=== PATIENT | male | born 1960 | race Caucasian/White ===

== ENCOUNTER 2016-05-30 14:10 | Inpatient (IN) | payer OTHER ==
--- NOTE | 2016-05-30 14:59 | ED ---
GI Bleed HPI - General Chief complaint: GI Bleed Stated complaint: rectal bleeding Time Seen by Provider: 05/30/16 14:10 Source: patient, EMS, RN notes reviewed Mode of arrival: EMS Limitations: no limitations - History of Present Illness Initial comments: This is a 56-year-old male with a history of schizophrenia depression and anxiety who is brought in for evaluation rectal bleeding. He had some back heart stool with blood in it he also complains of pain to his right index finger with some swelling. He states he did cut it open himself. He still complains of pain and redness. He does also say took a spoon to try to get the stool out of his rectum. He denies any abdominal pain at this time. - Related Data Home Medications Medication Instructions Recorded Confirmed Atenolol/Chlorthalidone 1 tab PO DAILY 12/23/15 05/30/16 [Atenolol-Chlorthalidone 100-25] Potassium Chloride 10 meq PO DAILY 12/23/15 05/30/16 Acetaminophen Tab [Tylenol Tab] 500 mg PO TID 05/30/16 05/30/16 Aspirin 325 mg PO DAILY 05/30/16 05/30/16 Cyclobenzaprine [Flexeril] 10 mg PO BID PRN 05/30/16 05/30/16 Diazepam [Valium] 5 mg PO BID PRN 05/30/16 05/30/16 Naproxen [Naproxen] 500 mg PO BID 05/30/16 05/30/16 Paliperidone IM [Invega Sustenna] 234 mg IM Q28D 05/30/16 05/30/16 Paliperidone [Invega] 6 mg PO DAILY 05/30/16 05/30/16 Trihexyphenidyl HCl [Artane] 5 mg PO TID 05/30/16 05/30/16 Previous Rx's Medication Instructions Recorded Docusate [Colace] 100 mg PO DAILY cap 12/29/15 Furosemide [Lasix] 40 mg PO DAILY #30 tab 12/29/15 Isosorbide Mononitrate ER [Imdur] 30 mg PO DAILY #30 tab.er.24h 12/29/15 Allergies Allergy/AdvReac Type Severity Reaction Status Date / Time penicillin V Allergy Severe Rash/Hives Verified 05/30/16 14:52 Review of Systems ROS Statement: Those systems with pertinent positive or pertinent negative responses have been documented in the HPI. ROS Other: All systems not noted in ROS Statement are negative. Past Medical History Past Medical History: COPD, Diabetes Mellitus, Osteoarthritis (OA), Seizure Disorder Additional Past Medical History / Comment(s): tardive dyskinesia, alcoholism in the past. History of Any Multi-Drug Resistant Organisms: None Reported Past Surgical History: No Surgical Hx Reported Past Psychological History: Depression, Schizophrenia Smoking Status: Current every day smoker Past Alcohol Use History: None Reported Past Drug Use History: None Reported General Exam - General Exam Comments Initial Comments: This is a well-developed well-nourished awake alert male Limitations: no limitations General appearance: alert, in no apparent distress, anxious Head exam: Present: atraumatic, normocephalic, normal inspection Eye exam: Present: normal appearance, PERRL, EOMI. Absent: scleral icterus, conjunctival injection, periorbital swelling ENT exam: Present: normal exam, mucous membranes moist Neck exam: Present: normal inspection. Absent: tenderness, meningismus, lymphadenopathy Respiratory exam: Present: normal lung sounds bilaterally. Absent: respiratory distress, wheezes, rales, rhonchi, stridor Cardiovascular Exam: Present: regular rate, normal rhythm, normal heart sounds. Absent: systolic murmur, diastolic murmur, rubs, gallop, clicks GI/Abdominal exam: Present: soft, distended (Increased tympany no masses guarding rebound), normal bowel sounds. Absent: tenderness, guarding, rebound, rigid Rectal exam: Present: other (I did examine the patient's rectum no evidence of acute trauma there are some small hemorrhoids are nontender to palpation rectal exam does reveal some dark stool and some dark blood. Nontender to palpation) Extremities exam: Present: full ROM, normal capillary refill, other (Is an the right upper extremity demonstrates a paronychia to the right index finger to the dorsal lateral aspect. Is also evidence of some pus exuding from the nailbed. No evidence of any foreign body no definite deformity.). Absent: tenderness, pedal edema, joint swelling, calf tenderness Back exam: Present: normal inspection Neurological exam: Present: alert, oriented X3, CN II-XII intact Psychiatric exam: Present: normal affect, normal mood Skin exam: Present: warm, dry, intact, normal color. Absent: rash Course Vital Signs 05/30/16 05/30/16 14:11 15:48 Temperature 97.6 F 98.4 F Pulse Rate 62 63 Respiratory 20 20 Rate Blood Pressure 112/55 97/56 O2 Sat by Pulse 95 95 Oximetry - Reevaluation(s) Reevaluation #1: 05/30/16 17:12 Patient did have. EKG didn't require I&D draining also nailbed required removal this was accomplished by my physician psychologist research assistant. Patient be placed on IV antibiotics Medical Decision Making - Medical Decision Making I did discuss findings with the patient will be admitted for evaluation by GI also be placed on IV antibiotics for the infected right index finger. Patient does demonstrate anemia which was not previously documented. - Lab Data Result diagrams: 05/30/16 15:00 05/30/16 15:00 Lab Results 05/30/16 05/30/16 05/30/16 Range/Units 15:00 15:00 15:00 WBC 10.6 (3.8-10.6) k/uL RBC 3.35 L (4.30-5.90) m/uL Hgb 10.7 L (13.0-17.5) gm/dL Hct 31.7 L (39.0-53.0) % MCV 94.7 (80.0-100.0) fL MCH 31.9 (25.0-35.0) pg MCHC 33.7 (31.0-37.0) g/dL RDW 15.0 (11.5-15.5) % Plt Count 211 (150-450) k/uL Neutrophils % (Manual) 73.0 % Lymphocytes % (Manual) 17.0 % Monocytes % (Manual) 4.0 % Eosinophils % (Manual) 6.0 % Neutrophils # (Manual) 7.7 (1.3-7.7) k/uL Lymphocytes # (Manual) 1.8 (1.0-4.8) k/uL Monocytes # (Manual) 0.4 (0-1.0) k/uL Eosinophils # (Manual) 0.6 (0-0.7) k/uL Nucleated RBCs 0 (0-0) /100 WBC Manual Slide Review Performed RBC Morphology Normal APTT (22.0-30.0) sec Sodium 129 L (137-145) mmol/L Potassium 3.7 (3.5-5.1) mmol/L Chloride 91 L (98-107) mmol/L Carbon Dioxide 28 (22-30) mmol/L Anion Gap 10 mmol/L BUN 19 (9-20) mg/dL Creatinine 0.74 (0.66-1.25) mg/dL Est GFR (MDRD) Af Amer >60 (>60 ml/min/1.73 sqM) Est GFR (MDRD) Non-Af >60 (>60 ml/min/1.73 sqM) Glucose 116 H (74-99) mg/dL Calcium 8.4 (8.4-10.2) mg/dL Magnesium 1.8 (1.6-2.3) mg/dL Total Bilirubin 0.6 (0.2-1.3) mg/dL AST 40 (17-59) U/L ALT 32 (21-72) U/L Alkaline Phosphatase 103 (38-126) U/L Total Creatine Kinase 572 H (55-170) U/L CK-MB (CK-2) 6.6 H* (0.0-2.4) ng/mL CK-MB (CK-2) Rel Index 1.2 Troponin I 0.022 (0.000-0.034) ng/mL Total Protein 6.1 L (6.3-8.2) g/dL Albumin 3.5 (3.5-5.0) g/dL Stool Occult Blood (Negative) Blood Type Blood Type Recheck Antibody Screen Spec Expiration Date 05/30/16 05/30/16 05/30/16 Range/Units 15:00 15:00 16:33 WBC (3.8-10.6) k/uL RBC (4.30-5.90) m/uL Hgb (13.0-17.5) gm/dL Hct (39.0-53.0) % MCV (80.0-100.0) fL MCH (25.0-35.0) pg MCHC (31.0-37.0) g/dL RDW (11.5-15.5) % Plt Count (150-450) k/uL Neutrophils % (Manual) % Lymphocytes % (Manual) % Monocytes % (Manual) % Eosinophils % (Manual) % Neutrophils # (Manual) (1.3-7.7) k/uL Lymphocytes # (Manual) (1.0-4.8) k/uL Monocytes # (Manual) (0-1.0) k/uL Eosinophils # (Manual) (0-0.7) k/uL Nucleated RBCs (0-0) /100 WBC Manual Slide Review RBC Morphology APTT 22.3 (22.0-30.0) sec Sodium (137-145) mmol/L Potassium (3.5-5.1) mmol/L Chloride (98-107) mmol/L Carbon Dioxide (22-30) mmol/L Anion Gap mmol/L BUN (9-20) mg/dL Creatinine (0.66-1.25) mg/dL Est GFR (MDRD) Af Amer (>60 ml/min/1.73 sqM) Est GFR (MDRD) Non-Af (>60 ml/min/1.73 sqM) Glucose (74-99) mg/dL Calcium (8.4-10.2) mg/dL Magnesium (1.6-2.3) mg/dL Total Bilirubin (0.2-1.3) mg/dL AST (17-59) U/L ALT (21-72) U/L Alkaline Phosphatase (38-126) U/L Total Creatine Kinase (55-170) U/L CK-MB (CK-2) (0.0-2.4) ng/mL CK-MB (CK-2) Rel Index Troponin I (0.000-0.034) ng/mL Total Protein (6.3-8.2) g/dL Albumin (3.5-5.0) g/dL Stool Occult Blood Positive (Negative) Blood Type O Positive Blood Type Recheck No Antibody Screen NEGATIVE Spec Expiration Date 06/02/20162299 - Radiology Data Radiology results: report reviewed (I did review the imaging no acute findings) , image reviewed Disposition Clinical Impression: GI bleed, Paronychia of finger of right hand, Anemia, Schizophrenia Disposition: ADMITTED IP TO THIS [facility] Condition: Stable
[2016-05-30 15:07] LABS: Aty Lym Flag Moderate; CH 31.7; CHCM 33.7; HCT 31.7 % (39.0-53.0); HDW 3.27; HGB 10.7 gm/dL (13.0-17.5); MCH 31.9 pg (25.0-35.0); MCHC 33.7 g/dL (31.0-37.0); MCV 94.7 fL (80.0-100.0); Mean Platelet Volume 7.2; RBC 3.35 m/uL (4.30-5.90); WBC 10.6 k/uL (3.8-10.6); WBC (Perox) 10.76
[2016-05-30 15:16] LABS: ALT 32 U/L (21-72); AST 40 U/L (17-59); Alkaline Phosphatase 103 U/L (38-126); Anion Gap 10 mmol/L; Blood Urea Nitrogen 19 mg/dL (9-20); Calcium 8.4 mg/dL (8.4-10.2); Carbon Dioxide 28 mmol/L (22-30); Chloride 91 mmol/L (98-107); Glucose 116 mg/dL (74-99); Magnesium 1.8 mg/dL (1.6-2.3); Non-African American GFR(MDRD) >60 (>60 ml/min/1.73 sqM); Potassium 3.7 mmol/L (3.5-5.1); Sodium 129 mmol/L (137-145); Total Bilirubin 0.6 mg/dL (0.2-1.3); Total Protein 6.1 g/dL (6.3-8.2)
[2016-05-30 15:42] LABS: Troponin I 0.022 ng/mL (0.000-0.034)
[2016-05-30 15:45] LABS: Creatine Kinase MB 6.6 ng/mL (0.0-2.4)
--- NOTE | 2016-05-30 15:48 | XR ---
EXAMINATION TYPE: XR hand complete RT DATE OF EXAM: 05/30/2016 3:07 PM CLINICAL HISTORY: pain TECHNIQUE: Frontal, lateral and oblique images of the right hand are obtained. COMPARISON: None. FINDINGS: There is no acute fracture/dislocation evident.Soft tissue swelling about the right second digit may be postinfectious in nature. No evidence for osteomyelitis. Mild joint space narrowing inv olving various PIP and DIP joints. IMPRESSION: There is no acute fracture or dislocation ICD 10 NO FRACTURE, INITIAL EVALUATION
[2016-05-30] MEDS ORDERED: SODIUM CHLORIDE 0.9% 1,000 ML IV STA (16:37)
[2016-05-30 16:42] LABS: Add Differential Manual Differential
[2016-05-30 16:45] LABS: Manual Review Performed; Nucleated Red Blood Cells 0 /100 WBC (0-0); RBC Morphology Normal; Total Cells Counted 100
[2016-05-30] MEDS ORDERED: NALOXONE 0.4 MG/ML 1 ML VIAL IV PRN (17:14)
[2016-05-30] MEDS ORDERED: CLINDAMYCIN 600 MG in DEXTROSE 5% IN WATER 50 ML IVPB STA ×2 (17:23)
[2016-05-30] MEDS ORDERED: SODIUM CHLORIDE 0.9% 1,000 ML IV ONE (17:53)
--- NOTE | 2016-05-30 18:39 | XR ---
EXAMINATION TYPE: XR chest 2V DATE OF EXAM: 05/30/2016 6:20 PM COMPARISON: NONE HISTORY: Cough per order. TECHNIQUE: Frontal and lateral views of the chest are obtained. FINDINGS: The osseous structures are intact. There is underlying mild cardiomegaly. Background of chr onic emphysematous change is suspected. On frontal view there is increased opacity in the right lung base less well-seen on lateral view. Lateral view is suboptimal due to patient's large body habitus. Some pleural thickening laterally in right lung is suspected. No pleural effusion or pneumothorax is evident bilaterally. IMPRESSION: Cardiomegaly and probably underlying chronic emphysematous change with possible right me dial basilar middle lobe infiltrate. Clinical correlation advised.
--- NOTE | 2016-05-30 18:40 | XR ---
EXAMINATION TYPE: XR abdomen 1V DATE OF EXAM: 05/30/2016 6:20 PM CLINICAL HISTORY: Abdominal pain. TECHNIQUE: 2 upright KUB images of the abdomen are obtained. COMPARISON: None. FINDINGS: Exam is suboptimal due to portable technique and patient's large body habitus. Gas is seen in nondistended stomach. Scattered gas is seen in non-distended small bowel loops. Gas and fecal ma terial is seen in non-distended colon. There is 13 mm horizontal calculus lower pole level left kidne y. No pneumoperitoneum is evident. Visualized osseous structures are intact. IMPRESSION: Overall nonobstructive bowel gas pattern. Probable lower pole 1.3 cm calculus left kidney.
[2016-05-30] MEDS: SODIUM CHLORIDE 0.9% 1,000 ML IV SCH (19:10)
[2016-05-30 21:22] LABS: CH 31.5; CHCM 33.5; HCT 28.4 % (39.0-53.0); HDW 3.32; HGB 9.4 gm/dL (13.0-17.5); MCH 31.5 pg (25.0-35.0); MCHC 33.2 g/dL (31.0-37.0); MCV 94.8 fL (80.0-100.0); Mean Platelet Volume 8.4; RBC 2.99 m/uL (4.30-5.90); RDW 14.8 % (11.5-15.5); WBC 8.5 k/uL (3.8-10.6)
[2016-05-30] MEDS ORDERED: CYCLOBENZAPRINE 10 MG TAB PO PRN (22:05)
[2016-05-30] MEDS: PANTOPRAZOLE 40 MG/10 ML VIAL IVP SCH (22:21)
[2016-05-31] MEDS: ALPRAZolam 0.5 MG TAB PO PRN ×3 (00:04→17:29)
[2016-05-31] MEDS: CLINDAMYCIN 600 MG in DEXTROSE 5% IN WATER 50 ML IVPB SCH ×8 (00:04→18:05)
[2016-05-31] MEDS: NAPROXEN 250 MG TAB PO SCH ×2 (00:04→09:17)
[2016-05-31] MEDS: SODIUM CHLORIDE 0.9% 1,000 ML IV SCH ×3 (04:04→17:29)
[2016-05-31] MEDS: DOCUSATE 100 MG CAP PO SCH (08:57)
[2016-05-31] MEDS: FUROSEMIDE 40 MG TAB PO SCH (08:57)
[2016-05-31] MEDS: ISOSORBIDE MONONITRATE ER 30 MG TAB.ER.24H PO SCH (08:57)
[2016-05-31] MEDS: POTASSIUM CHLORIDE ER 10 MEQ TAB.ER.PRT PO SCH (08:57)
[2016-05-31] MEDS: PANTOPRAZOLE 40 MG/10 ML VIAL IVP SCH ×2 (08:57→20:58)
[2016-05-31] MEDS: ATENOLOL 50 MG TAB PO SCH (08:58)
[2016-05-31] MEDS: CHLORTHALIDONE 25 MG TAB PO SCH (08:58)
[2016-05-31] MEDS ORDERED: ASPIRIN 325 MG TAB PO SCH (09:00)
[2016-05-31] MEDS ORDERED: PALIPERIDONE 6 MG TAB.ER.24 PO SCH (09:00)
[2016-05-31] MEDS ORDERED: TRIHEXYPHENIDYL 2 MG TAB PO SCH (09:00)
[2016-05-31 09:29] LABS: Aty Lym Flag Moderate; CH 31.5; CHCM 33.3; HCT 29.5 % (39.0-53.0); HDW 3.41; MCH 32.2 pg (25.0-35.0); MCHC 33.8 g/dL (31.0-37.0); MCV 95.3 fL (80.0-100.0); Mean Platelet Volume 8.2; Poikilocytosis Slight; RBC 3.09 m/uL (4.30-5.90); RDW 14.8 % (11.5-15.5); WBC (Perox) 8.23
--- NOTE | 2016-05-31 10:05 | P.CONS ---
History of Present Illness - Reason for Consult Consult date: 05/31/16 rectal bleeding Requesting physician: Crescencio Silverio - History of Present Illness 56-year-old gentleman with a history of schizophrenia with auditory hallucinations, depression, anxiety, hypertension, below average intellect, and obesity. Patient presents to the ER with index finger pain and rectal bleeding. Patient was using a spon to disimpact himself. Reports occasional constipation. Denies hematemesis melena fever chills or weight loss. No changes in appetite. No history of colonoscopy or EGD. Denies alcohol. No aspirin or excessive usage of NSAIDs but takes naproxen 500 mg twice daily as well as full strength aspirin. 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 No reports of recurrent rectal bleeding melena hematemesis. He underwent incision and drainage of index finger in the ER. Admission hemoglobin 10.7. MCV 94. Platelet 211. BUN 19. Creatinine 0.7. Hemoccult stool positive. Abdominal x-rays overall nonobstructive bowel gas pattern. Review of medical records hemoglobin in 2013 between 17.9-18.5. Review of Systems Constitutional: Denies fever, chills, sweats, weight gain, or loss. HEENT: Negative for migraines, blurred vision or loss, earaches, drainage, tinnitus, oral mucosal lesions, dysphagia, or odynophagia. Cardiac: Hypertension. Negative for chest pain, arrhythmias, or palpitation. Respiratory: Negative for shortness of breath, hemoptysis, cough, or sputum production. Gastrointestinal: See HPI for pertinent findings. Genitourinary: Negative for hematuria, urgency, frequency, polyuria, dysuria, or penile discharge. Musculoskeletal: Negative for muscle aches, swelling, arthritis, and arthralgias. Neurologic: Negative for stroke or TIA. Endocrine: Negative for thyroid problems. Skin: Negative for rash or itching. Psychiatric: Schizophrenia. Anxiety. Depression. All systems: negative (See HPI) Past Medical History Past Medical History: COPD, Osteoarthritis (OA), Seizure Disorder Additional Past Medical History / Comment(s): tardive dyskinesia, alcoholism in the past. History of Any Multi-Drug Resistant Organisms: None Reported Past Surgical History: No Surgical Hx Reported Past Psychological History: Anxiety, Depression, Schizophrenia Smoking Status: Current every day smoker Past Alcohol Use History: None Reported Past Drug Use History: None Reported - Past Family History Father Family Medical History: Cancer Additional Family Medical History / Comment(s): liver Mother Family Medical History: Dementia Medications and Allergies Home Medications Medication Instructions Recorded Confirmed Type Atenolol/Chlorthalidone 1 tab PO DAILY 12/23/15 05/30/16 History [Atenolol-Chlorthalidone 100-25] Potassium Chloride 10 meq PO DAILY 12/23/15 05/30/16 History ALPRAZolam [Xanax] 0.5 mg PO TID PRN 05/30/16 05/30/16 History Acetaminophen Tab [Tylenol Tab] 500 mg PO TID PRN 05/30/16 05/30/16 History Aspirin 325 mg PO DAILY 05/30/16 05/30/16 History Cyclobenzaprine [Flexeril] 10 mg PO BID PRN 05/30/16 05/30/16 History Naproxen [Naproxen] 500 mg PO BID 05/30/16 05/30/16 History Paliperidone IM [Invega Sustenna] 234 mg IM Q28D 05/30/16 05/30/16 History Paliperidone [Invega] 6 mg PO DAILY 05/30/16 05/30/16 History Trihexyphenidyl HCl [Artane] 5 mg PO TID 05/30/16 05/30/16 History Allergies Allergy/AdvReac Type Severity Reaction Status Date / Time penicillin V Allergy Severe Rash/Hives Verified 05/30/16 14:52 Physical Exam Vitals: Vital Signs Temp Pulse Pulse Resp BP BP Pulse Ox 05/31/16 07:00 98.4 F 69 16 113/67 94 L 05/30/16 23:00 97.8 F 64 16 108/49 92 L 05/30/16 20:44 97.1 F L 67 16 106/68 92 L 05/30/16 19:53 97.9 F 63 18 111/55 96 05/30/16 19:35 64 18 96/53 96 05/30/16 19:06 98.2 F 66 18 117/55 94 L 05/30/16 18:21 97.8 F 62 20 97/37 96 05/30/16 17:51 64 20 110/51 94 L 05/30/16 17:40 98.5 F 63 20 92/58 94 L Intake and Output 05/30/16 05/31/16 05/31/16 22:59 06:59 14:59 Output Total 2550 650 Balance -2550 -650 Output: Urine 2550 650 Other: # Voids 2 1 Weight 181 kg General appearance: The patient is alert, oriented, in no acute distress. Disheveled appearance. HET: Head is normocephalic and atraumatic. Pupils are equal and reactive. Oropharynx is clear without lesions. Neck: Supple without lymphadenopathy. Trachea midline. Heart: S1 S2. Regular rate and rhythm. Lungs: No crackles or wheezes are heard. Abdomen: Soft, nontender, nondistended with bowel sounds. No peritoneal signs. No palpable organomegaly or masses. Extremities: Index finger with dressing clean dry intact without bleeding. Normal skin color and turgor. No cyanosis, rash, ulceration, clubbing, or edema. Radial and pedal pulses are 2/4 bilaterally. Neurological: No focal deficits. Strength and sensation are grossly intact. Rectal: Deferred. Results CBC & Chem 7: 05/31/16 08:49 05/30/16 15:00 Labs: Abnormal Lab Results - Last 24 Hours (Table) 05/30/16 05/31/16 Range/Units 21:00 08:49 RBC 2.99 L 3.09 L (4.30-5.90) m/uL Hgb 9.4 L 10.0 L (13.0-17.5) gm/dL Hct 28.4 L 29.5 L (39.0-53.0) % Abdominal x-ray: report reviewed (Reviewed by Dr. Ken) Assessment and Plan (1) Rectal bleeding Narrative/Plan: 56-year-old male with a history of schizophrenia presents with rectal bleeding using a foreign object to disimpact himself. Hemoccult stool positive. Etiology of bleeding could be local trauma from spoon however other pathology contributing to his present anemia such as NSAID aspirin-induced peptic ulcer disease cannot be entirely excluded as patient's hemoglobin has decreased significantly over the last 3 years. Status: Acute (2) Morbid obesity with BMI of 50.0-59.9, adult Status: Chronic (3) Schizophrenia Status: Chronic (4) Anemia Status: Acute Plan: 1. Patient is declining endoscopic exams at this time. Would advise psychiatric consultation. Appears patient is not able to use reasonable judgment at this time in regards to workup of his anemia. Would advise follow- up in the GI office after discharge once his psychiatric status is assessed. Recommend EGD colonoscopy for workup of anemia once patient consents. We'll be available for additional questions or concerns. Will allow regular diet. Protonix 40 mg daily. Monitor CBC. Thank you for this kind referral and the opportunity to participate in the care of your patient. This consultation was discussed with Dr. Ken. The impression and plan of care have been directed as dictated.
[2016-05-31 10:37] LABS: Add Differential Manual Differential
[2016-05-31 10:39] LABS: Nucleated Red Blood Cells 1 /100 WBC (0-0); Total Cells Counted 200
[2016-05-31 10:40] LABS: WBC 7.6 k/uL (3.8-10.6)
[2016-05-31 10:41] LABS: Polychromasia Present
[2016-05-31 13:38] LABS: % Iron Saturation 7.1 % (20-50)
[2016-05-31 14:53] LABS: CH 31.6; CHCM 33.6; HCT 28.2 % (39.0-53.0); HDW 3.48; HGB 9.2 gm/dL (13.0-17.5); MCH 30.8 pg (25.0-35.0); MCHC 32.5 g/dL (31.0-37.0); MCV 94.7 fL (80.0-100.0); Mean Platelet Volume 7.7; Poikilocytosis Slight; RBC 2.98 m/uL (4.30-5.90); WBC 7.6 k/uL (3.8-10.6)
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
[2016-05-31] MEDS: TRIHEXYPHENIDYL 2 MG TAB PO SCH (17:30)
[2016-05-31] MEDS ORDERED: ONDANSETRON 4 MG/2 ML VIAL IVP PRN (17:31)
[2016-05-31] MEDS ORDERED: PEG 3350-NA SULF,BICARB,CL/KCL 4,000 ML BOTTLE PO ONE (18:01)
[2016-05-31] MEDS: ACETAMINOPHEN TAB 500 MG TAB PO PRN (20:25)
[2016-05-31 21:05] LABS: CH 31.4; CHCM 33.2; HCT 27.9 % (39.0-53.0); HGB 9.4 gm/dL (13.0-17.5); Hypochromasia Slight; MCH 32.3 pg (25.0-35.0); MCHC 33.8 g/dL (31.0-37.0); MCV 95.5 fL (80.0-100.0); Mean Platelet Volume 7.4; Poikilocytosis Slight; RBC 2.92 m/uL (4.30-5.90); RDW 14.7 % (11.5-15.5); WBC 6.7 k/uL (3.8-10.6)
[2016-06-01] MEDS: CLINDAMYCIN 600 MG in DEXTROSE 5% IN WATER 50 ML IVPB SCH ×8 (00:23→21:05)
[2016-06-01] MEDS: SODIUM CHLORIDE 0.9% 1,000 ML IV SCH ×3 (02:49→16:49)
[2016-06-01 03:48] LABS: CH 31.2; HCT 28.5 % (39.0-53.0); HDW 3.48; HGB 9.6 gm/dL (13.0-17.5); Hypochromasia Slight; MCH 31.9 pg (25.0-35.0); MCHC 33.5 g/dL (31.0-37.0); MCV 95.1 fL (80.0-100.0); Mean Platelet Volume 7.1; Poikilocytosis Slight; RDW 14.7 % (11.5-15.5); WBC 5.6 k/uL (3.8-10.6)
--- NOTE | 2016-06-01 07:08 | HP ---
DATE OF ADMISSION: 05/30/2016 PRESENTING COMPLAINT: Bleeding per rectum. HISTORY OF PRESENTING COMPLAINT: This is a 56-year-old patient who was in the psychiatry unit December of last year. Patient has a diagnosis of schizophrenia. Patient's chronic stable medical conditions include being a smoker, COPD, osteoarthritis, patient was constipated at home and apparently used a spoon to take his stool out. Patient had some bleeding. When patient got to the floor, he had further bleeding. Seen by gastroenterology earlier today and patient refused colonoscopy. Apparently, the patient chewed up the digit of his finger and has got a dressing in place. Psychiatry was consulted. Earlier I had asked Dr. Montez to see if the patient is competent to make decisions. It was felt it was right. The patient did have a large bowel movement actually down in the ER and also up on the floor. REVIEW OF SYSTEMS: CONSTITUTIONAL: Tired. HEENT: None. RESPIRATORY: Some wheezing. CARDIOVASCULAR: None. GASTROINTESTINAL: As above. GENITOURINARY: None. MUSCULOSKELETAL: Pain in the left knee. Dermatologic: None. LYMPHATIC: None. HEMATOLOGIC: None. PSYCHIATRY: as above. NEUROLOGICAL: None. PAST MEDICAL HISTORY: COPD, osteoarthritis, schizophrenia. SOCIAL HISTORY: Lives by himself, smokes at least about a pack a day. Alcohol none. FAMILY HISTORY: Liver cancer. HOME MEDICATIONS: 1. Artane 5 mg p.o. t.i.d. 2. Potassium 10 mEq daily. 3. Invega 6 mg p.o. daily. 4. Invega Sustenna 225 mg IM q. 28 days. 5. Naproxen 500 mg p.o. b.i.d. 6. Imdur ER 30 mg daily. 7. Lasix 40 mg p.o. daily. 8. Colace 100 mg p.o. daily. 9. Flexeril 10 mg p.o. b.i.d. p.r.n. 10. Ethanol Chlorthalidone 100/25, 1 tablet daily. 11. Aspirin 325 p.o. daily. 12. Tylenol 500 mg p.o. daily p.r.n. 13. Xanax 0.5 p.o. t.i.d. p.r.n. ALLERGIES: PENICILLIN-V. PHYSICAL EXAMINATION: Vital signs on presentation: Temperature 98.5, pulse 63, respiration 20, blood pressure 92/58, pulse ox 94% on room air. GENERAL APPEARANCE: Well built, BMI 54.1. Disheveled. Lying in bed. EYES: Conjunctivae pale. HEENT: External appearance of nose and ears normal. Oral cavity normal. NECK: JVD unable to assess. Mass not palpable. RESPIRATORY: Effort increased. Diminished breath sounds. CARDIOVASCULAR: First and second sounds normal. No edema. ABDOMEN: Distended, soft. Liver and spleen not palpable. LYMPHATIC: No lymph nodes palpable in the neck or axilla. PSYCHIATRY: Patient answering questions, but difficult to get a full answer from him. NEUROLOGICAL: Pupils equal. Cranial nerves grossly intact. Power and sensation grossly intact. INVESTIGATIONS: Admission labs: White count 10.6, hemoglobin 10.7; repeat is 9.2, sodium 129, potassium 3.7. Stool occult blood positive. ASSESSMENT: 1. Acute gastrointestinal bleed in a patient who had use of foreign objects in the form of metallic spoon to evacuate his still, now having recurrent bleeding but refuses colonoscopy. 2. Hyponatremia. 3. Schizophrenia. 4. Acute blood loss anemia from gastrointestinal bleed. 5. Chronic obstructive pulmonary disease in a smoker. 6. Chronic nicotine dependence. Patient is a smoker. 7. Primary osteoarthritis multiple joints. 8. Morbid obesity, body mass index 54.1. PLAN: Despite the patient getting IV fluids, home medications are resumed. Seen by GI ordered a colonoscopy. The patient is talking relatively fine. I cannot deem at this point to be incompetent. We will keep a close eye on the patient. Follow his H&H.
[2016-06-01] MEDS: TRIHEXYPHENIDYL 2 MG TAB PO SCH ×3 (07:49→16:49)
[2016-06-01] MEDS: CHLORTHALIDONE 25 MG TAB PO SCH (07:50)
[2016-06-01] MEDS: ATENOLOL 50 MG TAB PO SCH (07:50)
[2016-06-01] MEDS: POTASSIUM CHLORIDE ER 10 MEQ TAB.ER.PRT PO SCH (07:50)
[2016-06-01] MEDS: ISOSORBIDE MONONITRATE ER 30 MG TAB.ER.24H PO SCH (07:50)
[2016-06-01] MEDS: FUROSEMIDE 40 MG TAB PO SCH (07:50)
[2016-06-01] MEDS: DOCUSATE 100 MG CAP PO SCH (07:50)
[2016-06-01 09:17] LABS: CH 31.3; CHCM 32.7; HCT 29.7 % (39.0-53.0); HDW 3.53; HGB 9.7 gm/dL (13.0-17.5); Hypochromasia Slight; MCH 31.4 pg (25.0-35.0); MCHC 32.5 g/dL (31.0-37.0); MCV 96.4 fL (80.0-100.0); Mean Platelet Volume 7.2; Poikilocytosis Slight; RBC 3.08 m/uL (4.30-5.90); RDW 14.6 % (11.5-15.5); WBC 7.1 k/uL (3.8-10.6)
[2016-06-01] MEDS ORDERED: LORazepam 2 MG/ML SYRINGE IM STA (09:52)
--- NOTE | 2016-06-01 10:24 | P.PN ---
Progress Note - Text PATIENT WAS SEEN FOR PSYCHIATRIC FOLLOW_UP SUBJECTIVE: I reviewed the medical record, I talked with his RN,patient refusing to have scope and they asked to evaluate patient regarding ability making his own decision ,I saw patient and I explained to him procedure and consequences if he is resistant to pursue further testing ,patient verbalized understanding but he said "I AM SCARED TO DURING SCOPE ",patient was given reassurance ,he was able to sign consent OBJECTIVE: He presented as a morbid obese male who was unkept and disheveled. He showed no abnormality of psychomotor activity. . His speech is non spontaneous but coherent He denied suicidal ideation or wishes. He denied feeling hopelessness, helplessness and worthlessness. He was slightly suspicious. His thinking was concrete He denied hallucinations and did not appear to be responding to internal stimuli.Insight and judgment are fair ASSESSMENT: He is competent making his own decision ,endores irrational fear from procedue but able to calm down with explanation PLAN: Ordered IM 2mg Ativan prior to procedure ,Valium 5 mg TID PRN ,will continue to follow-up ,if medically cleared ,refer to ACT team at [facility]
[2016-06-01] MEDS: PANTOPRAZOLE 40 MG/10 ML VIAL IVP SCH ×2 (11:32→21:06)
[2016-06-01 11:51] VITALS: BMI 44.8
[2016-06-01] MEDS ORDERED: LIDOCAINE 1% INJ 10MG/ML (20 ML MDV) ONE (14:01)
[2016-06-01] MEDS ORDERED: PROPOFOL 10 MG/ML 20 ML VIAL IV ONE (14:01)
--- NOTE | 2016-06-01 14:11 | P.PCN ---
Date of Procedure: 06/01/16 Procedure(s) Performed: BRIEF HISTORY: Patient is a 56-year-old, pleasant, white male scheduled for an upper endoscopy as well as colonoscopy as a part of evaluation of acute GI bleed. He was noted to have mild anemia with hemoglobin of 9.8 g/dL. The patient refuses to have a colonoscopy done and did not complete his prep and hence only upper endoscopy is being done today PROCEDURE PERFORMED: Esophagogastroduodenoscopy with biopsy . PREOPERATIVE DIAGNOSIS: Acute GI bleed IV sedation per anesthesia. PROCEDURE: After informed consent was obtained, the patient was brought into the endoscopy unit. IV conscious sedation was administered by Anesthesia under continuous monitoring. Initially the Olympus GIF-140 video endoscope was inserted into the mouth. Esophagus intubated without any difficulty. It was gradually advanced into the stomach and duodenum and carefully examined. The bulb and the second part of the duodenum appeared normal. The scope at this time was withdrawn to the stomach, adequately insufflated with air, and upon careful examination, mucosa of the antrum, had 1 cm clean-based antral ulcer with no bleeding. Biopsies were done from this area. The body, cardia and the fundus appeared normal. The scope was then withdrawn into the esophagus. The GE junction was located at 39 cm from the incisors. here short segment of Lord's esophagus extending 1 cm proximal to the GE junction and this was biopsied. The rest of the esophagus appeared normal. There were no erosions or ulcerations seen and the patient tolerated the procedure well. IMPRESSION: 1. 1 cm antral ulcer with no active bleeding status post biopsy 2. 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 RECOMMENDATIONS: The findings of this examination were discussed with the patient as well as his family. He'll be continued on Protonix 40 mg daily and diet will be advanced as tolerated. He was advised to have a colonoscopy in outpatient basis since he is refusing at this time.
[2016-06-01] MEDS ORDERED: IV FLUID CONTINUATION 1,000 ML IV ONE (14:18)
[2016-06-01] MEDS: DIAZEPAM 5 MG TAB PO PRN (15:04)
[2016-06-01 15:28] LABS: CH 31.3; CHCM 32.7; HCT 30.6 % (39.0-53.0); HDW 3.57; HGB 9.7 gm/dL (13.0-17.5); Hypochromasia Slight; MCH 30.7 pg (25.0-35.0); MCHC 31.8 g/dL (31.0-37.0); MCV 96.5 fL (80.0-100.0); Mean Platelet Volume 8.1; Poikilocytosis Slight; RBC 3.17 m/uL (4.30-5.90); RDW 14.6 % (11.5-15.5); WBC 5.9 k/uL (3.8-10.6)
--- NOTE | 2016-06-01 15:52 | XR ---
EXAMINATION TYPE: XR knee complete LT DATE OF EXAM ORDERED: 06/01/2016 3:48 PM HISTORY: fall before admission, knee pain. COMPARISON: Previous study dated 12/23/2015. FINDINGS: There is medial joint space loss. There is mild remodeling change in the medial compartment as well as the patellofemoral joint. No fracture, dislocation or joint effusion is seen. IMPRESSION: 1. NO EVIDENCE OF ACUTE TRAUMA. 2. OSTEOARTHRITIS.
[2016-06-01] MEDS: PALIPERIDONE 6 MG TAB.ER.24 PO SCH (21:02)
[2016-06-01 21:39] LABS: CH 31.2; CHCM 32.8; HCT 28.9 % (39.0-53.0); HDW 3.63; HGB 9.5 gm/dL (13.0-17.5); Hypochromasia Slight; MCH 31.4 pg (25.0-35.0); MCHC 32.9 g/dL (31.0-37.0); MCV 95.5 fL (80.0-100.0); Poikilocytosis Slight; RBC 3.02 m/uL (4.30-5.90); RDW 14.5 % (11.5-15.5)
--- NOTE | 2016-06-01 22:50 | PN ---
DATE OF SERVICE: 06/01/2016 PRESENTING COMPLAINT: Bleeding per rectum. INTERVAL HISTORY: This is a patient with schizophrenia who presented with bleeding per rectum after using a spoon to evacuate his stool. Earlier this morning I got a call from the patient's outpatient psychiatrist, Dr. Pace, concerned about his medical condition and to get a colonoscopy done. I did have him speak directly to Dr. Johnson, Psychiatry, for consultation. She did evaluate the patient again and felt that the patient is competent. ( ) the patient's brother, cousin and his niece were there talking to him about getting the colonoscopy done and to drink the laxative, GoLytely. Patient is somewhat apprehensive about the procedure. Earlier patient did have an EGD showed a gastric antral ulcer and Lord's esophagus. The patient is on clear liquids. No abdominal pain. Review of systems done for constitutional, cardiovascular, GI, pulmonary; relevant findings as above. Current medications are reviewed. On examination, temperature 97, pulse 65, respiration 16, blood pressure 106/64, pulse ox 100% on 2 L. GENERAL APPEARANCE: Lying in bed, somewhat disheveled. EYES: Pupils equal. Conjunctivae normal. NECK: JVD not raised. Mass not palpable. RESPIRATORY: Effort normal. LUNGS: Diminished breath sounds. CARDIOVASCULAR: First and second sounds normal. No edema. ABDOMEN: Soft, nontender. Liver and spleen not palpable. PSYCHIATRY: Patient is answering questions appropriately but is rather apprehensive. INVESTIGATIONS: White count 6, hemoglobin 9.5. ASSESSMENT: 1. Acute gastrointestinal bleed in a patient who used a foreign object in the form of a metallic spoon to evacuate his stool followed by rectal bleeding. He underwent EGD today that showed gastric antral ulcer and Lord's esophagus. We are trying to get the patient to have a colonoscopy. 2. Hyponatremia, likely hypo-osmolar. 3. Schizophrenia. 4. Acute blood loss anemia from gastrointestinal bleed. 5. Chronic obstructive pulmonary disease in a smoker. 6. Chronic nicotine dependence. Patient is a smoker. 7. Primary osteoarthritis in multiple joints, bilateral. 8. Morbid obesity; body mass index of 54.1. PLAN: Care was discussed with the patient and family at bedside and also Dr. Pace earlier in the morning. I spoke to Samra from GI. We are hoping the patient will take GoLytely and proceed with colonoscopy tomorrow, which is important in view of the ( ) events.
[2016-06-02] MEDS: DIAZEPAM 5 MG TAB PO PRN ×3 (01:48→20:25)
[2016-06-02] MEDS: CLINDAMYCIN 600 MG in DEXTROSE 5% IN WATER 50 ML IVPB SCH ×8 (03:40→20:25)
[2016-06-02] MEDS: SODIUM CHLORIDE 0.9% 1,000 ML IV SCH ×2 (03:40→10:34)
[2016-06-02] MEDS: FUROSEMIDE 40 MG TAB PO SCH (10:32)
[2016-06-02] MEDS: POTASSIUM CHLORIDE ER 10 MEQ TAB.ER.PRT PO SCH (10:33)
[2016-06-02] MEDS: ATENOLOL 50 MG TAB PO SCH (10:33)
[2016-06-02] MEDS: DOCUSATE 100 MG CAP PO SCH (10:33)
[2016-06-02] MEDS: CHLORTHALIDONE 25 MG TAB PO SCH (10:33)
[2016-06-02] MEDS: TRIHEXYPHENIDYL 2 MG TAB PO SCH ×3 (10:33→17:38)
[2016-06-02] MEDS: PANTOPRAZOLE 40 MG/10 ML VIAL IVP SCH ×2 (10:33→20:25)
[2016-06-02] MEDS: ISOSORBIDE MONONITRATE ER 30 MG TAB.ER.24H PO SCH (10:33)
[2016-06-02] MEDS: ACETAMINOPHEN TAB 500 MG TAB PO PRN ×2 (10:38→20:39)
--- NOTE | 2016-06-02 12:13 | XR ---
EXAMINATION TYPE: XR chest 1V portable DATE OF EXAM: 06/02/2016 12:06 PM HISTORY: SOB. REFERENCE: Previous study dated 05/30/2016. FINDINGS: The lungs are overinflated. The heart is enlarged. There is mild vascular congestion withou t raman edema. There is atelectasis at the lung bases. Pleural spaces are clear. IMPRESSION: 1. COPD. 2. CARDIOMEGALY. 3. VASCULAR CONGESTION. 4. BIBASILAR ATELECTASIS.
[2016-06-02] MEDS: FUROSEMIDE 10 MG/ML 4 ML VIAL IV SCH ×2 (17:39→23:12)
--- NOTE | 2016-06-02 18:07 | PN ---
DATE OF SERVICE: 06/02/2016 This 56-year-old gentleman who was admitted with acute lower GI bleeding also had history of foreign body in the rectum. The patient underwent EGD showed gastric antral ulcer and Lord's esophagus. The patient being closely monitored. The patient also complaining of shortness of breath also. Past medical history reviewed. REVIEW OF SYSTEMS: CARDIOVASCULAR: As mentioned earlier. RESPIRATORY: as mentioned earlier. GI: No nausea. : No dysuria or retention. Current medications are: 1. Tylenol 500 mg q.i.d. 2. Tenormin 100 milligrams p.o. daily. 3. Hygroton 25 mg p.o. daily. 4. Clindamycin 600 milligrams IV q.6h. 5. Flexeril 10 mg b.i.d. 6. Valium. 7. Colace 100 mg p.o. daily. 8. Lasix 40 mg daily. 9. Imdur 30 mg daily. 10. Narcan 0.2 q.2 p.r.n. 11. Zofran 4 mg q6h. 12. Invega. 13. Protonix 40 mg IV b.i.d. 14. K-Dur 10 meq p.o. daily. PHYSICAL EXAMINATION: The patient is alert and oriented x3. Pulse is 97, blood pressure is 157/84, respirations 18, temperature 96.9, pulse ox 94% on 2 L. HEENT: Conjunctivae normal. NECK: No jugular venous distention. CARDIOVASCULAR: S1, S2 muffled. RESPIRATORY: Breath sounds diminished at the bases. A few scattered rhonchi and no crackles. Expiratory wheezing also present. ABDOMEN: Soft, obese, nontender. No mass palpable. LEGS: No edema. No swelling. CENTRAL NERVOUS SYSTEM: No focal deficits. LABS: WBC 6, hemoglobin is 9.5, MCV is normal. Otherwise, sodium 129, and CK-MB is 66. Creatinine kinase is 572. Stool OB is positive. ASSESSMENT: 1. Acute lower gastrointestinal bleeding with acute blood loss anemia, present on admission. 2. Esophagogastroduodenoscopy showing gastric antral ulcer and Lord's esophagus. 3. Congestive heart failure, acute exacerbation ejection fraction unknown. 4. Hyponatremia, possibly hypoosmolar. 5. Schizophrenia,. 6. Acute blood loss anemia from gastrointestinal bleed, blood loss. 7. Chronic obstructive pulmonary disease. 8. History of nicotine dependence. 9. History of degenerative joint disease. 10. Obesity, body mass index of 54.1. 11. Hyponatremia. 12. Random blood sugar. 13. Increased total creatinine kinase. RECOMMENDATIONS AND DISCUSSION: In this 56-year-old gentleman who presented with multiple complex medical issues, we will monitor the patient closely, continue current medications, repeat labs will be ordered. Otherwise, continue with the medication as listed above. Prognosis guarded. Further recommendations to follow. I would also recommend cut down the IV fluids and also check an x-ray and continue to monitor. Guarded prognosis. Further recommendations to follow. The chest x-ray showed some vascular congestion, I would initiate Lasix as well. Further recommendations to follow. MTDD
[2016-06-02] MEDS: PALIPERIDONE 6 MG TAB.ER.24 PO SCH (20:25)
[2016-06-03] MEDS: CLINDAMYCIN 600 MG in DEXTROSE 5% IN WATER 50 ML IVPB SCH ×4 (04:02→08:39)
[2016-06-03] MEDS: DIAZEPAM 5 MG TAB PO PRN (05:02)
[2016-06-03] MEDS: PANTOPRAZOLE 40 MG/10 ML VIAL IVP SCH (08:38)
[2016-06-03] MEDS: ATENOLOL 50 MG TAB PO SCH (08:38)
[2016-06-03] MEDS: FUROSEMIDE 10 MG/ML 4 ML VIAL IV SCH (08:38)
[2016-06-03] MEDS: TRIHEXYPHENIDYL 2 MG TAB PO SCH ×2 (08:39→12:36)
[2016-06-03] MEDS: CHLORTHALIDONE 25 MG TAB PO SCH (08:39)
[2016-06-03] MEDS: DOCUSATE 100 MG CAP PO SCH (08:39)
[2016-06-03] MEDS: ISOSORBIDE MONONITRATE ER 30 MG TAB.ER.24H PO SCH (08:40)
[2016-06-03] MEDS: ACETAMINOPHEN TAB 500 MG TAB PO PRN (08:44)
[2016-06-03] MEDS: POTASSIUM CHLORIDE ER 10 MEQ TAB.ER.PRT PO SCH (08:44)
[2016-06-03 08:54] LABS: Aty Lym Flag Moderate; CH 30.6; CHCM 32.2; HCT 32.8 % (39.0-53.0); HDW 3.88; HGB 10.5 gm/dL (13.0-17.5); Hypochromasia Slight; MCH 30.5 pg (25.0-35.0); MCHC 31.9 g/dL (31.0-37.0); MCV 95.6 fL (80.0-100.0); Poikilocytosis Slight; RBC 3.43 m/uL (4.30-5.90); RDW 14.3 % (11.5-15.5); WBC 5.9 k/uL (3.8-10.6); WBC (Perox) 6.74
[2016-06-03 09:01] LABS: Add Differential Manual Differential
[2016-06-03 09:07] LABS: Anion Gap 7 mmol/L; Blood Urea Nitrogen 13 mg/dL (9-20); Calcium 8.7 mg/dL (8.4-10.2); Carbon Dioxide 37 mmol/L (22-30); Chloride 92 mmol/L (98-107); Glucose 119 mg/dL (74-99); Non-African American GFR(MDRD) >60 (>60 ml/min/1.73 sqM); Potassium 3.6 mmol/L (3.5-5.1); Sodium 136 mmol/L (137-145)
[2016-06-03 09:10] LABS: Nucleated Red Blood Cells 0 /100 WBC (0-0); Polychromasia Present; Total Cells Counted 100
[2016-06-03 09:28] VITALS: BP 101/76; PULSE 65; TEMP 97.8
[2016-06-03 11:17] VITALS: RESP 18
--- NOTE | 2016-06-03 13:35 | DS ---
DATE OF ADMISSION: 05/30/2016 DATE OF DISCHARGE: FINAL DIAGNOSES: 1. Acute lower gastrointestinal bleeding with acute blood loss anemia, present on admission, possibly proctitis. 2. EGD showing gastric antral ulcer and Lord's esophagitis. 3. Congestive heart failure, acute exacerbation, ejection fraction unknown. 4. Hyponatremia, possibly hyposmolar. 5. History of schizophrenia. 6. Acute blood loss anemia from gastrointestinal blood loss. 7. Chronic obstructive pulmonary disease. 8. History of nicotine dependence. 9. History of degenerative joint disease. 10. Obesity, body mass index of 54.1. 11. Hyponatremia. 12. Increased random blood sugar. 13. Increased total creatinine kinase. 14. FULL CODE. DISCHARGE DISPOSITION: The patient will be discharged in a stable condition with guarded prognosis. TOTAL TIME TAKEN: 35 minutes. HISTORY OF PRESENT ILLNESS: This is a 56-year-old gentleman with a past medical history of multiple medical problems as mentioned earlier, being followed by Dr. Grimes and Dr. Pace in the outpatient setting, was admitted with lower GI bleeding and multiple other medical problems. Hemoglobin is monitored at 10.5, at this time treated symptomatically. Patient also seen by Psychiatry and Dr. Ken. Dr. Ken performed EGD shows findings as before, 1 cm antral ulcer. The patient was treated symptomatically. Patient improved significantly. Patient discharged in a stable condition with guarded prognosis. On exam, vitals are stable. CARDIOVASCULAR: S1, S2 muffled. ABDOMEN: Soft. NERVOUS SYSTEM: No focal deficits. DISCHARGE ADVICE: 1. Diet is cardiac. 2. Activity limited until followup. 3. Follow up with Dr. Grimes in 2 to 3 days. 4. Follow up with Dr. Ken as advised. 5. Follow up with Psych as advised. Medications will be: 1. Xanax 0.5 p.o. t.i.d. p.r.n. 2. Tylenol 500 mg t.i.d. 3. Hold aspirin for now. 4. Atenolol chlorthalidone 1 tablet p.o. daily. 5. Cleocin 150 mg q.6 for 3 more days. 6. Flexeril 10 mg b.i.d. p.r.n. 7. Colace 100 mg daily p.r.n. 8. Lasix 40 mg p.o. daily. 9. Imdur ER 30 mg p.o. daily. 10. Hold Naprosyn now. 11. Invega 6 mg p.o. daily. 12. Invega Sustenna 234 mg IM q.28 days. 13. KCl 10 mEq p.o. daily. 14. Artane 5 mg p.o. t.i.d. 15. Protonix 40 mg p.o. daily. Once again, the patient will be discharged in a stable condition with guarded prognosis.
[2016-06-13] MEDS ORDERED: PALIPERIDONE IM 234 MG/1.5 ML SYG IM SCH (09:00)
== END 2016-06-03 14:00 | disposition home or self-care (01) | DRG 378 ==
LOC: EC 14:10 → 4MS4W 17:14
PROVIDERS: ADMIT Hospitalist; ATTEND Hospitalist
PROC: 0H9QXZZ Drainage of Finger Nail, External Approach (ICD-10-PCS; 2016-05-30)
PROC: 0DB58ZX Excision of Esophagus, Via Natural or Artificial Opening Endoscopic, Diagnostic (ICD-10-PCS; 2016-06-01)
PROC: 0DB68ZX Excision of Stomach, Via Natural or Artificial Opening Endoscopic, Diagnostic (ICD-10-PCS; principal; 2016-06-01 07:50)
DX: K92.2 Gastrointestinal hemorrhage, unspecified (principal); E87.1 Hypo-osmolality and hyponatremia; I11.0 Hypertensive heart disease with heart failure; I50.9 Heart failure, unspecified; K25.9 Gastric ulcer, unspecified as acute or chronic, without hemorrhage or perforation; E11.9 Type 2 diabetes mellitus without complications; L03.011 Cellulitis of right finger; D62 Acute posthemorrhagic anemia; Z68.43 Body mass index [BMI] 50.0-59.9, adult; F20.9 Schizophrenia, unspecified; F10.20 Alcohol dependence, uncomplicated; K22.70 Barrett's esophagus without dysplasia; K59.09 Other constipation; F32.9 Major depressive disorder, single episode, unspecified; F41.9 Anxiety disorder, unspecified; G40.909 Epilepsy, unspecified, not intractable, without status epilepticus; K64.9 Unspecified hemorrhoids; M54.9 Dorsalgia, unspecified; R06.2 Wheezing; M25.562 Pain in left knee; F17.200 Nicotine dependence, unspecified, uncomplicated; E66.01 Morbid (severe) obesity due to excess calories; J44.9 Chronic obstructive pulmonary disease, unspecified; G89.29 Other chronic pain; T18.5XXS Foreign body in anus and rectum, sequela; M19.91 Primary osteoarthritis, unspecified site; G24.01 Drug induced subacute dyskinesia; Z71.3 Dietary counseling and surveillance; Z81.8 Family history of other mental and behavioral disorders; Z79.82 Long term (current) use of aspirin; Z80.0 Family history of malignant neoplasm of digestive organs; Z88.0 Allergy status to penicillin; Z82.0 Family history of epilepsy and other diseases of the nervous system; Z91.5 Personal history of self-harm; Z91.19 Patient's noncompliance with other medical treatment and regimen; Z79.1 Long term (current) use of non-steroidal anti-inflammatories (NSAID); Z79.899 Other long term (current) drug therapy; Y93.9 Activity, unspecified; Y92.9 Unspecified place or not applicable
CPT/HCPCS: 36415; 43239; 71010; 71020; 74000; 80048; 80053; 82272; 82550; 82553; 82728; 83540; 83550; 83735; 84484; 85025; 85027; 85730; 86850; 86900; 86901; 87040; 87070; 87077; 87186; 87205; 88305; 88342; 93005; 96360; 96361; 99285